=== PATIENT | female | born 1975 ===

== ENCOUNTER 2023-09-28 09:20 | Outpatient (AMB) | payer OTHER, SELFPAY ==
[2023-09-28 09:22] VITALS: BP 120/62; PULSE 67; TEMP 37.1; O2SAT 100; BMI 28.6
--- NOTE | 2023-09-28 09:22 | AM.OFFWIN_ITS ---
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 Patient Tobacco Use Status: Never used Tobacco Allergies No Known Allergies Allergy (Verified 09/28/23 09:23) Do you need a note to return to daycare/school/sports/work: No HPI NEUROLOGY TECHNICIAN body aches, Cough, Headaches, fatigue HPI Details Patient is a 47-year-old female who comes to the walk-in clinic complaining of almost a week of fatigue, nasal congestion, sneezing, postnasal drip and coughing, and now developing pressure in her ears along with sore throat. She had chills on the 1st 2 days of symptoms, which has resolved. No report of weakness or dizziness, hearing loss, discharge from the ears, nausea vomiting or diarrhea, shortness of breath or chest pain, or other significant associated symptoms. No underlying immuno compromising issues reported. [facility] Social History Patient Tobacco Use Status: Never used Tobacco Review of Systems Const All systems reviewed & are unremarkable except as noted in HPI and below Physical Exam Vital Signs: Last Vital Signs Temp 98.7 F 09/28/23 09:22 Pulse 67 09/28/23 09:22 BP 120/62 09/28/23 09:22 Pulse Ox 100 09/28/23 09:22 Oxygen Delivery Method Room Air 09/28/23 09:22 BMI result Body Mass Index 28.6 Const General: cooperative, healthy appearing, comfortable, no acute distress, alert, awake, Physically active and well groomed; No anxious, diaphoretic, intoxicated appearing, poor hygiene or tired appearing Nutritional Appearance: average body habitus Orientation/consciousness: oriented to person Limitations: no limitations HEENT Head: Yes normal to inspection, Yes normocephalic and Yes atraumatic Ears: hearing grossly normal bilaterally, external ears normal, TM normal on the right, EAC's normal and TM abnormal (Erythema to the superior aspect of the left TM) General nose exam: Normal external nose present, Normal nares present, No nasal polyps present, Normal nasal mucous membranes and turbinates present, Normal septum present, No nasal discharge present and Nasal discharge present Face and sinus: Yes normal facial exam, Yes sinuses nontender and Yes face symmetric Mouth: Normal oral and palatal mucosa present, lip normal and tongue normal Throat: Yes uvula midline, Yes abnormal tonsil (mildly erythematous bilaterally), No peritonsillar mass, Yes posterior oropharynx abnormal, Yes postnasal drainage, No uvula laterally displaced, No uvular edema and No cobblestoning Eyes General: appearance normal, both eyes and all related structures Neck Neck: Yes normal visual inspection, Yes trachea midline and No anterior neck swelling Chest Chest palpation & inspection: normal palpation of entire chest wall Resp Effort & Inspection: normal respiratory effort, able to speak in complete sentences, no audible wheezes, Actively coughing, no grunting, not labored, no nasal flaring, no respiratory distress, no retractions, no stridor, no tripod positioning, no use of accessory muscles, No prolonged expiratory phase and symmetric chest movement Auscultation: clear to auscultation bilaterally, no crackles, no rales, no rhonchi, no wheezes, lung sounds not diminished and No rub present Cardio Palpation: normal PMI Rate: regular rate Rhythm: regular rhythm Heart sounds: S1 normal heart sound present and S2 normal heart sound present Skin Other: Good color, warm and dry Neuro General: oriented to person Psych Appearance: grossly normal Mental Status: mental status grossly normal Speech and movement: Normal speech and movement present Affect: normal affect Attitude: cooperative Thought process: Normal thought process present Insight: Good insight present (Psych) Judgement: Good judgement present (Psych) Assessment & Plan Assessment & Plan (1) Viral syndrome: Code(s): B34.9 - Viral infection, unspecified Plan: Patient almost a weekend from upper respiratory infection symptoms, pending flu COVID and RSV results, although her home COVID test was negative. We discussed continuing supportive care including ibuprofen and Tylenol alternating for body aches and fever as needed. I will write her for Tariq Knapp for the cough. She starting to develop a left otitis media from the infection, so will also treat with Augmentin. She knows to follow up if symptoms persist or worsen Orders: Orders SARS-CoV2/FLU/RSV Today R05.9 - Cough, unspecified Medications: New amoxicillin-pot clavulanate 875-125 mg 1 tab PO BID 10 tabs 0RF benzonatate 200 mg PO BID-TID PRN 30 caps 0RF cough Coding Level of Care Code New Pt Level 4 (66244) Diagnoses Viral syndrome B34.9
== END 2023-09-28 10:23 | disposition home or self-care (01) ==
PROVIDERS: Visit Provider Physician Assistant Medical
DX: B34.9 Viral infection, unspecified (principal)
CPT/HCPCS: 99051; 99204

== ENCOUNTER 2023-09-28 09:56 | Outpatient (REF) | payer OTHER, SELFPAY ==
[2023-09-28 12:38] LABS: Influenza A PCR NEGATIVE (Negative); Influenza B PCR NEGATIVE (Negative); Resp Syncy Virus RNA Qual PCR NEGATIVE (Negative); SARS COV2 PCR INHOUSE NEGATIVE (Negative)
== END 2023-09-28 09:57 | disposition home or self-care (01) ==
LOC: HO.LAB 09:56
PROVIDERS: Visit Provider Physician Assistant Medical
DX: R05.9 Cough, unspecified (principal); J06.9 Acute upper respiratory infection, unspecified
CPT/HCPCS: 0241U